=== PATIENT | female | born 2000 | race African-American/Black ===

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

== ENCOUNTER → 2021-05-15 13:52 | Outpatient (BNVA) | payer MEDICAID, SELFPAY | PROVIDERS: Visit Provider Advanced Practice Midwife | DX: Z30.09 Encounter for other general counseling and advice on contraception (principal) | CPT/HCPCS: 99212 ==

== ENCOUNTER → 2021-05-31 14:31 | Outpatient (BNVA) | payer MEDICAID, SELFPAY | PROVIDERS: Visit Provider Advanced Practice Midwife | DX: Z30.017 Encounter for initial prescription of implantable subdermal contraceptive (principal); Z30.09 Encounter for other general counseling and advice on contraception | CPT/HCPCS: 11981; 99212; J7307 ==

== ENCOUNTER 2022-10-16 14:30 | Outpatient (AMB) | payer MEDICAID, SELFPAY ==
[2022-10-16 14:57] VITALS: BP 106/62; BMI 18.8
--- NOTE | 2022-10-16 14:57 | A.OFFVIS_ITS ---
Intake Vital Signs 10/16/22 14:57 Height 5 ft 9 in Weight 127 lb BMI 18.8 BP 106/62 Intake Visit Reasons: Nexplanon Follow up Intake Note: Has been spotting for a month after her period. Gas Turbine Mechanic Required: No Information Interpreted: non-clinical & clinical Plaster Machine Operator: Plaster Machine Operator Present (Iván) Allergies penicillin G [PENICILLIN G] Allergy (Unknown, Verified 10/16/22 14:57) HIVES Medication List - Last Reconciled 10/16/22 by Mary Ann Reis CNM etonogestrel (Nexplanon) subdermal Is last menstrual period known: Yes Last menstrual period: 09/21/22 Post menopausal: No HPI Nexplanon Follow up HPI Details patient is here to discuss breakthrough bleeding on her Nexplanon she went through her phone record with me and she has been bleeding various amounts up to 3 weeks in a month for the last few months. Though she describes at the most that it is 5-7 days of bleeding in the rest is just spotting. previous to that her periods were more like 3-4 days she has had the Nexplanon in since May of 2021 she is also worried because she has been having some cramping on her right side that comes and goes for a long time and a friend of hers had a tumor so she is scared she also could not tolerate the idea of a pelvic exam last year and she is getting scared about needing an exam when she turns 22. Vapes and smokes weed but not cigarettes. If she had the Nexplanon removed she would probably go back to pills. [facility] Social History Alcohol intake: never Gender identity: Female Female Reproductive History Menstrual Age of Menarche: 14 Duration of menses: 6-7 days Date of last menstrual period: 09/21/22 control method: implanted Physical Exam Vital Signs: Last Vital Signs BP 106/62 10/16/22 14:57 BMI result Body Mass Index 18.8 Const Other: very thin frame patient appears very pale. No acute tenderness or rebound pain on right side. Assessment & Plan Assessment & Plan (1) Encounter for counseling regarding contraception: Code(s): Z30.09 - Encounter for other general counseling and advice on contraception (2) Pelvic pain: Comment: right-sided cramping Code(s): R10.2 - Pelvic and perineal pain (3) Potential exposure to STD: Code(s): Z20.2 - Contact with and (suspected) exposure to infections with a predominantly sexual mode of transmission (4) Breakthrough bleeding on Nexplanon: Code(s): N92.1 - Excessive and frequent menstruation with irregular cycle; Z97.5 - Presence of (intrauterine) contraceptive device (5) Menorrhagia: Code(s): N92.0 - Excessive and frequent menstruation with regular cycle Plan discussed the Nexplanon bleeding side effects and went to her calendar with her in detail. Discussed the option of taking a course of control pills to see if it would help stop the bleeding. spent significant time going through exactly how to take the pills in the best case scenario she would start the next time her Period starts. she was concerned about taking the pills while on the Nexplanon but it would only be for a short time and it is to try to override the breakthrough bleeding. If it does not work or she is frustrated with the bleeding she can also make an appointment to take out the Nexplanon and then start pills also will order a pelvic ultrasound to explore possibility of a right ovarian cyst or other issue. I also reviewed what to do if the pain became severe- it is also possible it could be her appendix that is her problem. also has not been seen by her primary care provider in years and she appears very pale I am ordering a CBC and a TSH as well. she did become lightheaded when she was talking about her friends tumor but it was hard is tell if it was anxiety. we will see her in 2-3 months to see how she is doing but if she decides to take the Nexplanon out ahead of time she just needs to schedule that. she had indicated that she was not fond of getting blood drawn either and might not go right away and I called her after the visit in asked her to try to get the blood test done soon to check for anemia and did review her diet with her and it did sound varied though she does not eat much during the day. Orders: Orders US pelvic and transvaginal Today R10.2 - Pelvic and perineal pain, Z30.09 - Encounter for other general counseling and advice on contraception Hepatitis B Surface Antigen Today N92.0 - Excessive and frequent menstruation with regular cycle, N92.1 - Excessive and frequent menstruation with irregular cycle, R10.2 - Pelvic and perineal pain, Z20.2 - Contact with and (suspected) exposure to infections with a predominantly sexual mode of transmission, Z30.09 - Encounter for other general counseling and advice on contraception, Z97.5 - Presence of (intrauterine) contraceptive device Hepatitis C Antibody Today N92.0 - Excessive and frequent menstruation with regular cycle, N92.1 - Excessive and frequent menstruation with irregular cycle, R10.2 - Pelvic and perineal pain, Z20.2 - Contact with and (suspected) exposure to infections with a predominantly sexual mode of transmission, Z30.09 - Encounter for other general counseling and advice on contraception, Z97.5 - Presence of (intrauterine) contraceptive device HIV Ab/Ag Today N92.0 - Excessive and frequent menstruation with regular cycle, N92.1 - Excessive and frequent menstruation with irregular cycle, R10.2 - Pelvic and perineal pain, Z20.2 - Contact with and (suspected) exposure to infections with a predominantly sexual mode of transmission, Z30.09 - Encounter for other general counseling and advice on contraception, Z97.5 - Presence of (intrauterine) contraceptive device Syphilis Screen Today N92.0 - Excessive and frequent menstruation with regular cycle, N92.1 - Excessive and frequent menstruation with irregular cycle, R10.2 - Pelvic and perineal pain, Z20.2 - Contact with and (suspected) exposure to infections with a predominantly sexual mode of transmission, Z30.09 - Encounter for other general counseling and advice on contraception, Z97.5 - Presence of (intrauterine) contraceptive device Complete Blood Count no Diff Today N92.0 - Excessive and frequent menstruation with regular cycle, N92.1 - Excessive and frequent menstruation with irregular cycle, R10.2 - Pelvic and perineal pain, Z20.2 - Contact with and (suspected) ex posure to infections with a predominantly sexual mode of transmission, Z30.09 - Encounter for other general counseling and advice on contraception, Z97.5 - Presence of (intrauterine) contraceptive device Thyroid Stimulating Hormone Today N92.0 - Excessive and frequent menstruation with regular cycle, N92.1 - Excessive and frequent menstruation with irregular cycle, R10.2 - Pelvic and perineal pain, Z20.2 - Contact with and (suspected) exposure to infections with a predominantly sexual mode of transmission, Z30.09 - Encounter for other general counseling and advice on contraception, Z97.5 - Presence of (intrauterine) contraceptive device Medications: New desog-e.estradiol/e.estradiol 0.15-0.02 mgx21 /0.01 mg x 5 start at beginning of next bleeding. To manage breakthrough bleeding side effect of Nexplanon. 1 tab PO DAILY 28 tabs 0RF Coding Level of Care Code Est Pt Level 3 (59235) Diagnoses Encounter for counseling regarding contraception Z30.09 Pelvic pain R10.2 Potential exposure to STD Z20.2 Breakthrough bleeding on Nexplanon N92.1; Z97.5 Menorrhagia N92.0
== END 2022-10-16 16:00 | disposition home or self-care (01) ==
LOC: HO.HWS 14:30
PROVIDERS: Visit Provider Advanced Practice Midwife
DX: Z30.09 Encounter for other general counseling and advice on contraception (principal); R10.2 Pelvic and perineal pain; Z20.2 Contact with and (suspected) exposure to infections with a predominantly sexual mode of transmission; N92.1 Excessive and frequent menstruation with irregular cycle; Z97.5 Presence of (intrauterine) contraceptive device; N92.0 Excessive and frequent menstruation with regular cycle
CPT/HCPCS: 99213

== ENCOUNTER → 2022-10-16 14:30 | Outpatient (BNVA) | payer MEDICAID, SELFPAY | PROVIDERS: Visit Provider Advanced Practice Midwife | DX: Z30.09 Encounter for other general counseling and advice on contraception (principal); Z20.2 Contact with and (suspected) exposure to infections with a predominantly sexual mode of transmission; R10.2 Pelvic and perineal pain | CPT/HCPCS: 99213 ==

== ENCOUNTER 2022-10-24 14:29 | Outpatient (REF) | payer MEDICAID, SELFPAY ==
--- NOTE | ~2022-10-24 | US_ITS ---
EXAMINATION: US PELVIS CLINICAL INFORMATION: Irregular bleeding on Nexplanon. COMPARISON: None available. TECHNIQUE: Ultrasound of the pelvis is performed using transabdominal transducers along with Doppler. Patient refused transvaginal examination. FINDINGS: The uterus is anteverted measuring 8 x 3.7 x 6 cm. No uterine lesion. Endometrium measures 0.3 cm in thickness without focal abnormality. Ovaries are normal in morphology with preserved flow at the moment of this examination. The right ovary measures 3.4 x 2.7 x 1.5 cm, 7 mL. The left ovary measures 4.8 x 3.8 x 2.8 cm, 27 mL. Differences in size could be explained by the presence of a 3.1 x 2 x 3 cm simple appearing cyst in the left ovary with no associated thickened septations or mural nodules. No free fluid. US/US pelvic complete IMPRESSION: Asymmetric enlargement of the left ovary, likely explained by the presence of a 3 cm simple appearing cyst for which no imaging follow-up is routinely recommended in an asymptomatic patient. However, if the patient demonstrates symptoms of pain and an acute ovarian pathology is suspected, reevaluation with a pelvic ultrasound or pelvic MRI is recommended as torsion/detorsion and partial torsion cannot be entirely excluded. The report will be called to the ordering clinician by a [place] [facility]iology Physician Asset Protection Representative.
== END 2022-10-24 14:30 | disposition home or self-care (01) ==
LOC: HO.US 14:29
PROVIDERS: Visit Provider Advanced Practice Midwife
DX: Z30.09 Encounter for other general counseling and advice on contraception (principal)
CPT/HCPCS: 76856

== ENCOUNTER 2022-10-24 15:01 | Outpatient (REF) | payer MEDICAID, SELFPAY ==
[2022-10-24 16:11] LABS: Hematocrit 38.7 % (37.0-47.0); Hemoglobin 13.1 g/dl (12.0-16.0); Mean Corpuscular HGB Conc 33.9 g/dl (31.0-35.0); Mean Corpuscular Hemoglobin 29.4 pg (27.0-33.0); Mean Corpuscular Volume 86.8 fL (80.0-98.0); Mean Platelet Volume 10.3 fL (9.4-12.3); Platelet Count 303 X10*3/uL (160-400); Red Blood Count 4.46 X10*6/uL (4.20-5.50); Red Cell Distribution Width 12.5 % (11.0-16.0); White Blood Count 11.9 X10*3/uL (4.8-10.8)
[2022-10-24 17:00] LABS: Thyroid Stimulating Hormone 1.45 uIU/mL (0.32-4.0)
[2022-10-25 05:13] LABS: HBsAGNum1 0.35 S/CO (0.00-0.99); HIV AB/AG Nonreactive (Nonreactive); HIV Num 1 0.06 S/CO (0.00-0.99); Hepatitis B Surface Antigen Negative (Negative); ~HepC Num1 0.05 S/CO (0.00-0.79); ~Hepatitis C Antibody Nonreactive (Nonreactive)
[2022-10-26 04:12] LABS: Syphilis Screen Nonreactive (Nonreactive)
== END 2022-10-24 15:02 | disposition home or self-care (01) ==
LOC: HO.LAB 15:01
PROVIDERS: Visit Provider Advanced Practice Midwife
DX: Z20.2 Contact with and (suspected) exposure to infections with a predominantly sexual mode of transmission (principal); Z30.09 Encounter for other general counseling and advice on contraception; N92.1 Excessive and frequent menstruation with irregular cycle; R10.2 Pelvic and perineal pain; Z97.5 Presence of (intrauterine) contraceptive device; N92.0 Excessive and frequent menstruation with regular cycle
CPT/HCPCS: 36415; 84443; 85027; 86780; 86803; 87340; 87389

== ENCOUNTER 2023-01-16 11:00 | Outpatient (AMB) | payer MEDICAID, SELFPAY ==
[2023-01-16 11:06] VITALS: BP 104/62; BMI 18.9
--- NOTE | 2023-01-16 11:06 | A.OFFVIS_ITS ---
Intake Vital Signs 01/16/23 11:06 Height 5 ft 9 in Weight 128 lb BMI 18.9 BP 104/62 Intake Visit Reasons: Ultrasound follow up Intake Note: Pain in lower left abdomin in her last period better than her previous menses where she was bleeding for a month ( mo'b- pt states it was right side and is better now)- mo'b Chinchilla Farmer Required: No Allergies penicillin G [PENICILLIN G] Allergy (Unknown, Verified 01/16/23 11:09) HIVES Medication List - Last Reconciled 01/16/23 by Mary Ann Reis CNM desog-e.estradiol/e.estradiol 0.15-0.02 mgx21 /0.01 mg x 5 1 tab PO DAILY etonogestrel (Nexplanon) subdermal Is last menstrual period known: Yes Last menstrual period: 12/28/22 Post menopausal: No HPI Ultrasound follow up HPI Details Patient is here to discuss her ultrasound that was done and also her irregular bleeding that she was having on the Nexplanon for which she was given a trial of 1 month of OCPs to see if it would resolve her breakthrough bleeding. All of these issues were discussed at the last visit and for which she was prescribed a single month of OCPs to take to see if it would help her with the breakthrough bleeding she was having on the Nexplanon. She showed me her calendar and while she did bleed for the month after taking the pills she feels that there probably getting back to a normal cycle now and she would like to stick with the Nexplanon for maybe another 3 months or so and see how it goes I told her she can call the shots whenever she wants and if she decides that she is just bleeding too much and is not happy with the Nexplanon anymore she just needs to call and we will arrange for removal and her plan is that she would go back to control pills she has the new wallet that she could carry the pills in and she thinks she would be really good at remembering to take them so she is working on her plan B. We have discussed removal should that be the case and we also reviewed the ultrasound she had told the biomedical analytical scientist that she was having pain on 1 side but that it was better and what was written down was that it was the left side but the patient sates she actually said the right side and it is better now as well the ultrasound had showed a simple ovarian cyst on the patient's left side but since she is not having any symptoms there she declines follow-up ultrasound and she says the right-sided pain has already resolved as well. [facility] Social History Alcohol intake: never Gender identity: Female Female Reproductive History Menstrual Age of Menarche: 14 Duration of menses: >10 days Date of last menstrual period: 12/28/22 control method: implanted Physical Exam Vital Signs: Last Vital Signs BP 104/62 01/16/23 11:06 BMI result Body Mass Index 18.9 Const Other: Nexplanon palpable in left arm Results Reviewed Results Reviewed: [address] [address] Ultrasound Report Signed with Addenda Patient: Daria Walker MR#: [id number] : 2000 Acct:[id number] Age/Sex: 21 / F ADM Date: 10/24/22 Loc: HO.US Attending Dr: Mary Ann Reis CNM Ordering Physician: Mary Ann Reis CNM Date of Service: 10/24/22 Procedure(s): US pelvic complete Accession Number(s): [id number] cc: Mary Ann Reis CNM~ ADDENDUMResults Acknowledgement: Odalis Pham (10/30/2022 02:08:18): Spoke aleksandr Alberto to confirm report. Addendum Dictated By: Linda Langston Addendum Signed By: <Electronically signed by Linda Langston in [place]> 10/30/221425 Addendum Cosigned By: DD/ TD/TT: / EXAMINATION: US PELVIS CLINICAL INFORMATION: Irregular bleeding on Nexplanon. COMPARISON: None available. TECHNIQUE: Ultrasound of the pelvis is performed using transabdominal transducers along with Doppler. Patient refused transvaginal examination. FINDINGS: The uterus is anteverted measuring 8 x 3.7 x 6 cm. No uterine lesion. Endometrium measures 0.3 cm in thickness without focal abnormality. Ovaries are normal in morphology with preserved flow at the moment of this examination. The right ovary measures 3.4 x 2.7 x 1.5 cm, 7 mL. The left ovary measures 4.8 x 3.8 x 2.8 cm, 27 mL. Differences in size could be explained by the presence of a 3.1 x 2 x 3 cm simple appearing cyst in the left ovary with no associated thickened septations or mural nodules. No free fluid. US/US pelvic complete IMPRESSION: Asymmetric enlargement of the left ovary, likely explained by the presence of a 3 cm simple appearing cyst for which no imaging follow-up is routinely recommended in an asymptomatic patient. However, if the patient demonstrates symptoms of pain and an acute ovarian pathology is suspected, reevaluation with a pelvic ultrasound or pelvic MRI is recommended as torsion/detorsion and partial torsion cannot be entirely excluded. The report will be called to the ordering clinician by a [facility]iology Physician Cardiology Coordinator. Dictated By: Linda Langston Signed By: <Electronically signed by Linda Langston in OV> 10/26/22 1617 DD/ 1515 TD/TT: Assessment & Plan Assessment & Plan (1) Menorrhagia: Code(s): N92.0 - Excessive and frequent menstruation with regular cycle (2) Breakthrough bleeding on Nexplanon: Code(s): N92.1 - Excessive and frequent menstruation with irregular cycle; Z97.5 - Presence of (intrauterine) contraceptive device (3) Encounter for counseling regarding contraception: Code(s): Z30.09 - Encounter for other general counseling and advice on contraception Plan Patient is here to discuss her ultrasound that was done and also her irregular bleeding that she was having on the Nexplanon for which she was given a trial of 1 month of OCPs to see if it would resolve her breakthrough bleeding. All of these issues were discussed at the last visit and for which she was prescribed a single month of OCPs to take to see if it would help her with the breakthrough bleeding she was having on the Nexplanon. She showed me her calendar and while she did bleed for the month after taking the pills she feels that there probably getting back to a normal cycle now and she would like to stick with the Nexplanon for maybe another 3 months or so and see how it goes I told her she can call the shots whenever she wants and if she decides that she is just bleeding too much and is not happy with the Nexplanon anymore she just needs to call and we will arrange for removal and her plan is that she would go back to control pills she has the new wallet that she could carry the pills in and she thinks she would be really good at remembering to take them so she is working on her plan B. We have discussed removal should that be the case and we also reviewed the ultrasound she had told the biomedical analytical scientist that she was having pain on 1 side but that it was better and what was written down was that it was the left side but the patient sates she actually said the right side and it is better now as well the ultrasound had showed a simple ovarian cyst on the patient's left side but since she is not having any symptoms there she declines follow-up ultrasound and she says the right-sided pain has already resolved as well. Coding Level of Care Code Est Pt Level 3 (05337) Diagnoses Menorrhagia N92.0 Breakthrough bleeding on Nexplanon N92.1; Z97.5 Encounter for counseling regarding contraception Z30.09
== END 2023-01-16 11:58 | disposition home or self-care (01) ==
PROVIDERS: Visit Provider Advanced Practice Midwife
DX: N92.0 Excessive and frequent menstruation with regular cycle (principal); N92.1 Excessive and frequent menstruation with irregular cycle; Z97.5 Presence of (intrauterine) contraceptive device; Z30.09 Encounter for other general counseling and advice on contraception
CPT/HCPCS: 99213

== ENCOUNTER → 2023-01-16 11:00 | Outpatient (BNVA) | payer MEDICAID, SELFPAY | PROVIDERS: Visit Provider Advanced Practice Midwife | DX: Z30.09 Encounter for other general counseling and advice on contraception (principal); N92.0 Excessive and frequent menstruation with regular cycle; N92.1 Excessive and frequent menstruation with irregular cycle; Z97.5 Presence of (intrauterine) contraceptive device | CPT/HCPCS: 99212 ==

== ENCOUNTER 2024-06-18 14:18 | Outpatient (AMB) | payer MEDICAID, SELFPAY ==
--- NOTE | 2024-06-18 14:19 | A.OFFVIS_ITS ---
Intake Visit Reasons: Neplanon Removal Consult Adjunct Faculty For Medical Terminology Required: No Adjunct Faculty For Medical Terminology Services: Adjunct Faculty For Medical Terminology Present Information Interpreted: clinical only Ebd Teacher: Ebd Teacher Present Allergies penicillin G [PENICILLIN G] Allergy (Unknown, Verified 06/18/24 14:19) HIVES Medication List - Last Reconciled 06/18/24 by Mary Ann Reis CNM desog-e.estradiol/e.estradiol 0.15-0.02 mgx21 /0.01 mg x 5 1 tab PO DAILY etonogestrel (Nexplanon) subdermal Is last menstrual period known: Yes Last menstrual period: 05/28/24 HPI HPI Neplanon Removal Consult: Details: This is a tele visit to discuss taking patient has Nexplanon out she has been continuing to get regular menses once a month lasting a full 7 days her Nexplanon on the of last month according to the date card that she has for when we inserted it 3 years prior. She thinks she would like to just go back on control pills that she was on when she was younger and she did not have any problems with them at all. She does not smoke but she does vape periods she is healthy she is awaiting a new appointment with a primary care provider as there was an insurance issue and she got random me assigned to somebody different. She does not believe she has any health problems. She has not yet had her 1st Pap smear.. She is not having any particular concerns. A discussed with her the process of removal and how I will do it and the video was spotty but she was able to show me where it is in her arm and she said it was very easily palpable to her. She wants to start on control pills and her last periods started on May 28 so I am sending a prescription of control pills to her pharmacy that I recommend she start with the beginning of her next period 1 of the 1st full days of bleeding of the. And I described to her exactly how to take the pills according to the pill pack and to place the day of the week sticker at the top on the day she is starting to keep her straight. I reviewed danger signs and what to call for. And we will also be scheduling her annual exam and 1st Pap smear and separately from the a visit to remove her Nexplanon. Ideally she will be covered by the control pills before we remove the Nexplanon. [facility] Social History Alcohol intake: never Gender identity: Female Female Reproductive History Menstrual Age of Menarche: 14 Duration of menses: 6-7 days Date of last menstrual period: 05/28/24 control method: implanted Telehealth Telehealth Telehealth Platform: [employer] Location of provider rendering services: practice address Location of patient: address on file Patient Identification confirmed using: Name, : Yes Telehealth method: video Patient verbally consented to treatment: Yes Patient verbally consented to billing insurance company: Yes Patient informed of any privacy concerns related to visit: Yes Minutes spent on Phone/Video with Pt.: 17 Assessment & Plan Assessment & Plan (1) Encounter for counseling regarding contraception: Code(s): Z30.09 - Encounter for other general counseling and advice on contraception Category: Medical Plan This is a tele visit to discuss taking patient has Nexplanon out she has been continuing to get regular menses once a month lasting a full 7 days her Nexplanon on the of last month according to the date card that she has for when we inserted it 3 years prior. She thinks she would like to just go back on control pills that she was on when she was younger and she did not have any problems with them at all. She does not smoke but she does vape periods she is healthy she is awaiting a new appointment with a primary care provider as there was an insurance issue and she got random me assigned to somebody different. She does not believe she has any health problems. She has not yet had her 1st Pap smear.. She is not having any particular concerns. Gregory discussed with her the process of removal and how I will do it and the video was spotty but she was able to show me where it is in her arm and she said it was very easily palpable to her. She wants to start on control pills and her last periods started on May 28 so I am sending a prescription of control pills to her pharmacy that I recommend she start with the beginning of her next period 1 of the 1st full days of bleeding of the. And I described to her exactly how to take the pills according to the pill pack and to place the day of the week sticker at the top on the day she is starting to keep her straight. I reviewed danger signs and what to call for. And we will also be scheduling her annual exam and 1st Pap smear and separately from the a visit to remove her Nexplanon. Ideally she will be covered by the control pills before we remove the Nexplanon. This note is constructed using voice recognition software. While every effort has been made to ensure accuracy, digital media producer errors may have been included. Medications: Changed From desog-e.estradiol/e.estradiol 0.15-0.02 mgx21 /0.01 mg x 5 start at beginning of next bleeding. To manage breakthrough bleeding side effect of Nexplanon. 1 tab PO DAILY 28 tabs 0RF To desog-e.estradiol/e.estradiol 0.15-0.02 mgx21 /0.01 mg x 5 start at the beginning of next menses. ( Nexplanon will be removed ) 1 tab PO DAILY 84 tabs 3RF Coding Level of Care Code Tele Est Pt Level 3 (12894) Diagnoses Encounter for counseling regarding contraception Z30.09 Comment 2cr/17 speaking/video w pt/7 charting=26
--- OUTSIDE RECORDS SUMMARY | 2024-06-18 17:02 | XMS_ITS | Clinical Summary ---
Author Organization [facility] Address [address] [place] [phone] Phone Care Team Providers Care Corner Trimmer Operator Name Role Phone Unavailable Primary Care Provider Unavailabl e Immunizations Immunization Administration Dates Next Due DTaP 06/16/2007, 4,05/21/2002,03/19,01/30/2002 HPV Vaccine 9 Valent 11/24/2014 HPV, Quadrivalent 12/03/2013,12/02/2012 Hep B, ped/adol 12/20/2002,01/16/2002,2001 Hib (PRP-T) 02/19/2003, 3,03/19/2002,01/30 IPV 06/16/2007, 4,03/19/2002,01/30 Influenza, injectable, quadr ivalent, preservative free 11/24/2014 Influenza, intranasal, quadrivalent 12/03/2013,0 12/02/2012 MMR 02/19/2003 MMRV 06/06/2006 Meningococcal Conj (Menactra) MCV4P 12/02/2012 Pneumococcal Conjugate 11/24/2002,2002,03/19/2002,01/30 Tdap 12/02/2012 Varicella 12/04/2002 Family History Relation Name Status Comments Father Alive drug abuse, alc oholism age: 42 Maternal Grandfather Alive alcohol ism age: 85 Maternal Grandmother ovarian CA age: 65 diagnosed with MALIGNANT NEOPLASM NOS Mother Alive drug abuse, alc oholism age: 42 Social History Tobacco Use Types Packs/Day Years Used Date Smoking Tobacco: Never Assessed Comments Unknown Sex and Gender Information Value Date Recorded Sex Assigned at Not on file Legal Sex Female 6:16 PM EDT Gender Identity Not on file Sexual Orientation Not on file Last Filed Vital Signs Vital Sign Reading Time Taken Comments Blood Pressure 98/60 11/24/2014 12:00 AM EDT Pulse - - Temperature 37.1 ??C (98.8 ??F) 03/23/2010 12:[address] Respiratory Rate - - Oxygen Saturation - - Inhaled Oxygen Concentration - - Weight 48.4 kg (106 lb 9.6 oz) 11/24/2014 12:00 AM EDT Height 162.6 cm (5' 4 ) 11/24/2014 12:00 AM EDT Body Mass Index 18.3 11/24/2014 12:00 AM EDT Plan of Treatment Health Maintenance Due Date Last Done Comments Men B Vaccine (1 of 2 - Standard) 2017 DTaP,Tdap,and Td Vaccines (7 - Td or Tdap) 12/02/2022 12/02/2012, 06/16/2007, 05/21/2003, Additional history exists Influenza Vaccines (#1) 2023 11/25/19 15, 12/03/2013, 12/02/2012 COVID-19 Vaccine ( - 2023- season) 2023 Pneumococcal Vaccine Completed 11/24/2002, 05/21/2002, 03/19/2002, Additional history exists Hepatitis B Vaccines Completed 12/20/2002, 01/16/2002, 2001 HIB Vaccines Completed 02/19/2003, 05/09, 03/19/2002, Additional history exists MMR Vaccines Completed 06/06/2006, 02/19/2003 Varicella Vaccines Completed 06/06/2006, 12/04/2002 IPV Vaccines Completed 06/16/2007, 05/09, 03/19/2002, Additional history exists Meningococcal Vaccine Aged Out 12/02/2012 No [email or web address] anika eligible based on patient's age to complete this topic HPV Vaccines Completed 11/24/2014, 11/10, 12/02/2012 Hepatitis A Vaccines Aged Out No long er eligible based on patient's age to complete this topic
--- OUTSIDE RECORDS SUMMARY | 2024-06-18 17:02 | XMS_ITS | Encounter Summary ---
Author Organization [facility] Address [address] [place] [address] Phone Care Team Providers Care Art Critic Name Role Phone Danica Kay NP Primary Care Provider [phone] Encounter Details Date Type Department Care Team (Late st Contact Info) Description 07/28/2017 Conversion Encounter [facility] [address] [place] [address] Social History Tobacco Use Types Packs/Day Years Used Date Smoking Tobacco: Never Assessed Comments Unknown Sex and Gender Information Value Date Recorded Sex Assigned at Not on file Legal Sex Female 6:16 PM EDT Gender Identity Not on file Sexual Orientation Not on file documented as of this encounter Plan of Treatment Not on file documented as of this encounter Visit Diagnoses Not on filedocumented in this encounter Care Teams Art Critic Relationship Specialty Start Date End Date Danica Kay NP [address] [place] [address] PCP - General Pediatrics 07/30/19 01/06/24 documented as of this encounter
== END 2024-06-18 16:05 | disposition home or self-care (01) ==
LOC: HO.HWS 14:18
PROVIDERS: Visit Provider Advanced Practice Midwife
DX: Z30.09 Encounter for other general counseling and advice on contraception (principal)
CPT/HCPCS: 99213